=== PATIENT | female | born 1945 | race Caucasian/White ===

== ENCOUNTER 2017-06-23 10:21 | Outpatient (CLI) | payer MEDICARE, OTHER | END 2017-06-23 23:59 | disposition home or self-care (01) | LOC: RAD 10:21 | DX: M25.551 Pain in right hip (principal); M25.552 Pain in left hip | CPT/HCPCS: 73521 ==

== ENCOUNTER 2025-05-04 19:55 | Emergency (ER) | payer MEDICARE, OTHER ==
[~2025-05-04] VITALS: Ht 157.5 cm; Wt 68.9 kg
[2025-05-04 20:34] LABS: PLATELET COUNT (AUTO) 180 K/uL (150-450); RED BLOOD CELL COUNT(AUTO) 2.91 MIL/uL (4.0-5.2); RED CELL DISTRIBUTION WIDTH 16.8 % (11.5-15.0); WHITE BLOOD COUNT (AUTO) 3.8 K/uL (4.3-11.0)
[2025-05-04 20:48] LABS: INR 0.95 (0.91-1.10)
[2025-05-04] MEDS ORDERED: IOHEXOL-300 100 ML VIAL IV ONE (20:54)
[2025-05-04] MEDS ORDERED: IV NS 0.9% 250 ML IV ONE (20:55)
[2025-05-04 20:56] LABS: CALCIUM, SERUM 9.8 mg/dL (8.5-10.1); CREATININE 1.3 mg/dL (0.6-1.3); SODIUM SERUM 139 mmol/L (136-145); UREA NITROGEN, BLOOD 33 mg/dL (7-18)
[2025-05-04] MEDS: HYDROMORPHONE 1 MG/1 ML DISP.SYRIN IV STA (22:58)
[2025-05-05] MEDS ORDERED: HYDROMORPHONE 1 MG/1 ML DISP.SYRIN ONE (03:02)
[2025-05-05] MEDS: HYDROMORPHONE 1 MG/1 ML DISP.SYRIN IV PRN (03:05)
[2025-05-05 03:50] VITALS: BP 128/63; TEMP 98; O2SAT 98
== END 2025-05-05 03:50 ==
LOC: ER 19:59 → UNDOADMIN 21:34 → TELE 21:34 → UNDODISIN 05-05 10:25
DX: S32.032A Unstable burst fracture of third lumbar vertebra, initial encounter for closed fracture (principal); I10 Essential (primary) hypertension; E11.9 Type 2 diabetes mellitus without complications; Z85.3 Personal history of malignant neoplasm of breast; W01.0XXA Fall on same level from slipping, tripping and stumbling without subsequent striking against object, initial encounter; Y93.89 Activity, other specified; Y92.89 Other specified places as the place of occurrence of the external cause; Y99.8 Other external cause status
CPT/HCPCS: 99291; 72125; 96374; 71045; 93005; 71260; 70450; 74177; 85025; 80048; 36415; 84484; 85730; 86850; 96376; J7050; Q9967; J1171 ×2; G0378